=== PATIENT | female | born 1995 | race Caucasian/White ===

== ENCOUNTER 2019-12-19 20:46 | Emergency (ER) | payer OTHER ==
[~2019-12-19] VITALS: Ht 152.4 cm; Wt 73.9 kg
[2019-12-19 21:12] VITALS: BP 138/64
--- NOTE | 2019-12-19 21:16 | NUR ---
PT TAKEN TO US VIA WHEELCHAIR
--- NOTE | 2019-12-19 21:17 | NUR ---
Ragini patel in [facility] - 12/19/19 at 2117 by WALI PT TAKEN TO ULTRASOUND
[2019-12-19 21:34] LABS: BASOPHILS # (AUTO) 0.1 K/uL (0.00-0.22); BASOPHILS % (AUTO) 0.4 % (0.0-2.0); EOSINOPHILS % (AUTO) 0.2 % (0.0-4.0); HEMATOCRIT 42.4 % (36-48); HEMOGLOBIN 14.2 g/dL (12.0-16.0); LYMPHOCYTES # (AUTO) 2.8 K/uL (2.5-16.5); LYMPHOCYTES % (AUTO) 22.1 % (20.5-51.1); MEAN CORPUSCULAR HEMOGLOBIN 31 pg (27-31); MEAN CORPUSCULAR HGB CONC 34 g/dL (33-37); MEAN CORPUSCULAR VOLUME 91.5 fL (80-94); MONOCYTES # (AUTO) 0.7 K/uL (0.8-1.0); MONOCYTES % (AUTO) 5.9 % (1.7-9.3); NEUTROPHILS % (AUTO) 71.4 % (42.2-75.2); PLATELET COUNT (AUTO) 213 K/uL (140-450); RED BLOOD CELL COUNT(AUTO) 4.63 MIL/uL (4.20-5.40); RED CELL DISTRIBUTION WIDTH 13.1 % (11.6-13.7); WHITE BLOOD COUNT (AUTO) 12.6 K/uL (4.8-10.8)
--- NOTE | 2019-12-19 22:25 | NUR ---
24 Y/O FEMALE PRESENTS TO ER WITH C/O DULL BILATERAL LOWER ABDOMINAL PAIN, AND LBP X 2 WEEKS. CURRENTLY HAVING 2/10 PAIN. PT STATES LMP 11/15/19, HAD 2 POSITIVE HPT. DENIES DYSURIA, NAUSEA, VOMITING, DIARRHEA, FEVER, CHILLS, INJURY TO AREAS, SOB, COUGH, VAGINAL BLEEDING, OR DISCHARGE. VSS, R/R EQUAL, AND UNLABORED. SIDE RAIL X1, BED IN LOW POSITION, WILL CONTINUE TO MONITOR. NKDA DENIES PMH
--- NOTE | 2019-12-19 22:29 | NUR ---
Dr. Escudero examining patient.
[2019-12-19 22:44] VITALS: BP 138/64
--- NOTE | 2019-12-19 22:44 | NUR ---
Patient discharged with v/s stable. Written and verbal after care instructions given and explained. Patient verbalized understanding. Ambulatory with steady gait. All questions addressed prior to discharge. Advised to follow up with PMD.
== END 2019-12-19 22:44 | disposition home or self-care (01) ==
LOC: MED 20:46
DX: O20.0 Threatened abortion (principal); Z3A.01 Less than 8 weeks gestation of pregnancy; F12.10 Cannabis abuse, uncomplicated
CPT/HCPCS: 36415; 76817; 81002; 81025; 84702; 85025; 86900; 86901; 99284; Q0092

== ENCOUNTER 2019-12-21 09:35 | Emergency (ER) | payer OTHER ==
[~2019-12-21] VITALS: Ht 152.4 cm; Wt 72.1 kg
[2019-12-21 09:45] VITALS: BP 119/71
--- NOTE | 2019-12-21 09:56 | NUR ---
A0 LMP 11/15/2019 C/O VAGINAL SPOTTING AND MILD PELVIC CRAMPING X2 DAYS. PT WAS SEEN AT [facility] AND TOLD THAT SHE WAS ON 12/19/19. BED IN LOW POSITION, SIDE RAIL UP X1.
[2019-12-21 11:08] LABS: APPEARANCE,URINE CLOUDY (CLEAR); BILIRUBIN,URINE 1+ (NEGATIVE); BLOOD, URINE TRACE-I (NEGATIVE); COLOR,URINE AMBER (YELLOW); LEUKOCYTE ESTERASE ,URINE TRACE (NEGATIVE); NITRITE, URINE NEGATIVE (NEGATIVE); UGLUCOSE NEGATIVE (NEGATIVE)
[2019-12-21 11:17] LABS: RBC,URINE 0-5 /HPF (0-5); WBC,URINE 0-5 /HPF (0-5)
[2019-12-21 11:57] VITALS: BP 119/71
== END 2019-12-21 11:57 | disposition home or self-care (01) ==
LOC: MED 09:35
DX: O20.0 Threatened abortion (principal); F12.90 Cannabis use, unspecified, uncomplicated; Z3A.01 Less than 8 weeks gestation of pregnancy
CPT/HCPCS: 36415; 81001; 81025; 84702; 99283

== ENCOUNTER 2019-12-23 09:45 | Emergency (ER) | payer OTHER ==
[~2019-12-23] VITALS: Ht 152.4 cm; Wt 72.1 kg
[2019-12-23 09:50] VITALS: BP 137/70
--- NOTE | 2019-12-23 10:00 | NUR ---
Pt ambulated to bed 04
--- NOTE | 2019-12-23 10:02 | NUR ---
24 y/o female from home c/o lower abd pain since yesterday with vaginal bleeding. Was seen at [facility] for miscarriage on 12/21/19. States abd pain radiates to lower back. C/O moderate amount of bright red blood from vagina. LMP 11/15/19. Took Advil around 0900 for pain with no relief. Abd soft, flat, tender to palp. Bowel sounds present. Awake and alert, positioned for comfort. medhx: denies
--- NOTE | 2019-12-23 10:17 | NUR ---
Dr Hunt at bedside examining pt
--- NOTE | 2019-12-23 11:10 | NUR ---
Ultrasound at bedside
[2019-12-23 12:41] VITALS: BP 137/70
== END 2019-12-23 12:41 | disposition home or self-care (01) ==
LOC: MED 09:45
DX: O20.0 Threatened abortion (principal); O26.851 Spotting complicating pregnancy, first trimester; Z3A.01 Less than 8 weeks gestation of pregnancy
CPT/HCPCS: 76830; 99284; Q0092

== ENCOUNTER 2020-05-06 22:14 | Emergency (ER) | payer OTHER ==
[~2020-05-06] VITALS: Ht 152.4 cm; Wt 68.0 kg
[2020-05-06 22:30] VITALS: BP 115/71
--- NOTE | 2020-05-06 22:33 | NUR ---
TO LOBBY A/W BED AMBULATORY
[2020-05-06 22:35] VITALS: BP 115/71
--- NOTE | 2020-05-06 22:55 | NUR ---
SEEN AND EXAMINED BY JANE WITH ORDERS AND CARRIED OUT
[2020-05-06] MEDS ORDERED: ONDANSETRON 4 MG ODT PO ONE (23:00)
--- NOTE | 2020-05-06 23:20 | NUR ---
MEDICATED PER [facility] ORDER, TOLERATED WELL.
--- NOTE | 2020-05-07 | NUR ---
Patient discharged with OUT after care instructions .
--- NOTE | 2020-05-07 | NUR ---
Ragini patel in [facility] - 05/07/20 at 0112 by MAU Patient discharged with after care instructions .
== END 2020-05-07 | disposition home or self-care (01) ==
LOC: MED 22:14
DX: O21.8 Other vomiting complicating pregnancy (principal); O26.891 Other specified pregnancy related conditions, first trimester; R10.13 Epigastric pain; Z3A.01 Less than 8 weeks gestation of pregnancy
CPT/HCPCS: 81002; 81025; 99283; Q0162

== ENCOUNTER 2023-07-06 21:51 | Emergency (ER) | payer OTHER ==
[~2023-07-06] VITALS: Ht 152.4 cm; Wt 76.7 kg
[2023-07-06 22:29] VITALS: BP 127/90; PULSE 92; RESP 16; TEMP 98.5; O2SAT 98
[2023-07-07] MEDS: diphenhydrAMINE 50 MG/ML VIAL IVP ONE (00:53)
[2023-07-07] MEDS: FAMOTIDINE 20 MG/2 ML VIAL IVP ONE (00:55)
[2023-07-07] MEDS: methylPREDNISolone SS 125 MG/2 ML VIAL IVP ONE (00:55)
[2023-07-07 02:54] VITALS: BP 116/66; PULSE 76; RESP 16; TEMP 98.5; O2SAT 97
== END 2023-07-07 02:54 | disposition home or self-care (01) ==
LOC: MED 21:51
DX: T78.49XA Other allergy, initial encounter (principal); X58.XXXA Exposure to other specified factors, initial encounter
CPT/HCPCS: 96374; 96375; 99284; J1200; J2930; J3490

== ENCOUNTER 2023-10-17 10:51 | Emergency (ER) | payer OTHER ==
[~2023-10-17] VITALS: Ht 152.4 cm; Wt 74.8 kg
[2023-10-17 11:04] VITALS: BP 121/70; PULSE 78; RESP 18; TEMP 97.4; O2SAT 97
[2023-10-17] MEDS ORDERED: PYR100 PO (12:14)
[2023-10-17] MEDS ORDERED: IBUP-2213 PO (12:14)
[2023-10-17] MEDS ORDERED: CEPH-588 PO (12:14)
== END 2023-10-17 12:34 | disposition home or self-care (01) ==
LOC: MED 10:51
DX: N39.0 Urinary tract infection, site not specified (principal); Z88.1 Allergy status to other antibiotic agents; Z88.8 Allergy status to other drugs, medicaments and biological substances; Z79.899 Other long term (current) drug therapy
CPT/HCPCS: 81002; 81025; 87086; 87186; 99283

== ENCOUNTER 2024-02-03 08:07 | Emergency (ER) | payer OTHER ==
[~2024-02-03] VITALS: Ht 152.4 cm; Wt 71.7 kg
[~2024-02-03 08:07] MED LIST: CEPH-588 PO; IBUP-2213 PO; PYR100 PO
[2024-02-03 08:21] VITALS: BP 123/66; PULSE 86; RESP 16; TEMP 98.1; O2SAT 98
[2024-02-03 09:08] VITALS: BP 120/50; PULSE 80; RESP 16; TEMP 36.72516; O2SAT 98
== END 2024-02-03 09:08 | disposition home or self-care (01) ==
LOC: MED 08:07
DX: L02.214 Cutaneous abscess of groin (principal); Z79.899 Other long term (current) drug therapy; Z88.0 Allergy status to penicillin; Z88.1 Allergy status to other antibiotic agents
CPT/HCPCS: 99281